=== PATIENT | female | born 1990 ===

== ENCOUNTER 2017-09-12 22:49 | Emergency (ER) | payer MEDICAID ==
[2017-09-12 22:49] VITALS: BMI 48.5
[2017-09-12 22:56] VITALS: BP 128/58; PULSE 84; RESP 16; TEMP 98.2; O2SAT 97
[2017-09-12] MEDS ORDERED: Albuterol-Ipratrop 3 mg / 0.5 (3 ml) UD IH STA (23:19)
--- NOTE | 2017-09-12 23:21 | ED PDOC ---
HPI: CCC, URI, Sore Throat Time Seen by Provider: 09/12/17 23:05 Chief Complaint (Nursing): Cough, Cold, Congestion Chief Complaint (Provider): cough History Per: Patient History/Exam Limitations: no limitations Onset/Duration Of Symptoms: Days (4) Current Symptoms Are (Timing): Still Present Associated Symptoms: Cough Additional History Per: Patient Additional Complaint(s): 27 y/o female presents with nonproductive cough x 4 days. Associated nasal drainage, wheezing. Denies fever, nausea/vomiting, chest pain, shortness of breath, palpitations, abdominal pain, recent travel, sick contacts. Past Medical History Reviewed: Historical Data, Nursing Documentation, Vital Signs Vital Signs: Last Vital Signs Temp 98.2 F 09/12/17 22:55 Pulse 84 09/12/17 22:55 Resp 16 09/12/17 22:55 BP 128/58 L 09/12/17 22:55 Pulse Ox 97 09/12/17 23:21 - Medical History PMH: Asthma, Bronchitis, Fractures (Ribs), Pneumonia, Chronic Pain (Back, lower) Denies: Chronic Kidney Disease - Surgical History Surgical History: No Surg Hx - Family History Family History: States: Unknown Family Hx - Immunization History Hx Tetanus Toxoid Vaccination: No Hx Influenza Vaccination: No - Home Medications Home Medications: Ambulatory Orders Medication Instructions Recorded Albuterol HFA [Ventolin HFA 90 2 puff IH Q6 PRN 10/10/16 mcg/actuation (8 g)] Albuterol HFA [Ventolin HFA 90 1 - 2 puff IH Q4 PRN #1 inh 09/13/17 mcg/actuation (8 g)] Promethazine HCl/Codeine 5 ml PO Q8 PRN #50 ml 09/13/17 [Prometh-Codein 6.25-10 mg/5 ml] - Allergies Allergies/Adverse Reactions: Allergies Allergy/AdvReac Type Severity Reaction Status Date / Time No Known Allergies Allergy Verified 09/18/15 19:48 Review of Systems ROS Statement: Except As Marked, All Systems Reviewed And Found Negative ENT: Positive for: Nose Discharge Respiratory: Positive for: Cough, Wheezing Physical Exam - Reviewed Nursing Documentation Reviewed: Yes Vital Signs Reviewed: Yes - Physical Exam Appears: Positive for: Well, Non-toxic, No Acute Distress Head Exam: Positive for: ATRAUMATIC, NORMAL INSPECTION, NORMOCEPHALIC Skin: Positive for: Normal Color Eye Exam: Positive for: Normal appearance ENT: Positive for: Normal ENT Inspection Cardiovascular/Chest: Positive for: Regular Rate, Rhythm Respiratory: Positive for: Rhonchi, Wheezing Gastrointestinal/Abdominal: Positive for: Normal Exam Back: Positive for: Normal Inspection Extremity: Positive for: Normal ROM Neurologic/Psych: Positive for: Alert, Oriented - ECG O2 Sat by Pulse Oximetry: 97 Pulse Ox Interpretation: Normal - Radiology X-Ray: Viewed By Mn X-Ray Interpretation: No Acute Disease - Progress ED Course And Treament: flu, chest xray, duonebs On re-eval, patient states she is feeing better. Patient educated on findings, discharged with rx Albuterol, Promethazine with codeine Advised fluids, rest. Follow up PMD 2-3 days. Return precautions given. Disposition - Clinical Impression Clinical Impression: Bronchitis - Patient ED Disposition Is Patient to be Admitted: No Counseled Patient/Family Regarding: Studies Performed, Diagnosis, Need For Followup, Rx Given - Disposition Disposition: Routine/Home Disposition Time: 01:20 Condition: IMPROVED Prescriptions: Albuterol HFA [Ventolin HFA 90 mcg/actuation (8 g)] 1 - 2 puff IH Q4 PRN #1 inh PRN Reason: Wheezing Promethazine HCl/Codeine [Prometh-Codein 6.25-10 mg/5 ml] 5 ml PO Q8 PRN #50 ml PRN Reason: Cough Instructions: Acute Bronchitis (ED) Forms: [employer] (Slovenian)
[2017-09-13] MEDS ORDERED: Promethazine/Cod 6.25mg-10mg/5ml Syr UD PO STA (01:19)
[2017-09-13] MEDS ORDERED: Promethazine/Cod 6.25mg-10mg/5ml Syr UD ONE (01:26)
--- NOTE | 2017-09-13 15:25 | RAD ---
HISTORY: cough, congestion COMPARISON: No prior. TECHNIQUE: Chest PA and lateral FINDINGS: LUNGS: No active pulmonary disease. PLEURA: No significant pleural effusion identified. No pneumothorax apparent. CARDIOVASCULAR: Normal. OSSEOUS STRUCTURES: No significant abnormalities. VISUALIZED UPPER ABDOMEN: Normal. OTHER FINDINGS: None. IMPRESSION: No active disease.
== END 2017-09-13 01:31 | disposition home or self-care (01) ==
LOC: H.ER 22:49
DX: J40 Bronchitis, not specified as acute or chronic (principal); G89.29 Other chronic pain; J45.909 Unspecified asthma, uncomplicated

== ENCOUNTER 2018-04-17 19:52 | Emergency (ER) | payer MEDICAID ==
[2018-04-17 19:57] VITALS: BP 99/64; PULSE 82; TEMP 98.3; O2SAT 96; BMI 43.8
[2018-04-17 20:02] VITALS: RESP 18
[2018-04-17] MEDS ORDERED: Naproxen 500 MG TAB PO STA (20:12)
[2018-04-17] MEDS ORDERED: Naproxen 500 MG TAB PO ONE (20:27)
--- NOTE | 2018-04-17 20:43 | ED PDOC ---
Lower Extremity Pain/Injury Time Seen by Provider: 04/17/18 20:04 Chief Complaint (Nursing): Lower Extremity Problem/Injury Chief Complaint (Provider): Right Foot Pain History Per: Patient History/Exam Limitations: no limitations Onset/Duration Of Symptoms: Days (x2 weeks, worsening over last week) Current Symptoms Are (Timing): Still Present Additional Complaint(s): 28 year old female presents to the ED for evaluation of right foot pain onset two weeks ago. Patient reports the pain has been worsening over the last week especially in the morning and when initially taking her first few steps. States she has been taking Aleve for the pain, last dose this morning. She notes she recently began working out and is not sure if this pain is related to that or not. Otherwise, (-) prior foot injury, (-) trauma / falls (-) fever/chills. No other complaints offered at this time. LNMP: currently PMD: Yusra Biggs Past Medical History Reviewed: Historical Data, Nursing Documentation, Vital Signs Vital Signs: Last Vital Signs Temp 98.3 F 04/17/18 19:59 Pulse 82 04/17/18 19:59 Resp 18 04/17/18 19:59 BP 99/64 L 04/17/18 19:59 Pulse Ox 96 04/17/18 19:59 - Medical History PMH: Asthma, Bronchitis, Pneumonia - Surgical History Other surgeries: lipoma removed from scalp - Family History Family History: States: Unknown Family Hx - Social History Current smoker - smoking cessation education provided: No Alcohol: None Drugs: Denies - Home Medications Home Medications: Ambulatory Orders Medication Instructions Recorded Albuterol HFA [Ventolin HFA 90 2 puff IH Q6 PRN 10/10/16 mcg/actuation (8 g)] Albuterol HFA [Ventolin HFA 90 1 - 2 puff IH Q4 PRN #1 inh 09/13/17 mcg/actuation (8 g)] Promethazine HCl/Codeine 5 ml PO Q8 PRN #50 ml 09/13/17 [Prometh-Codein 6.25-10 mg/5 ml] Acetaminophen [Acetaminophen 8 650 mg PO Q8 PRN #21 tablet.er 04/17/18 Hour] Naproxen 500 mg PO BID PRN #20 tablet 04/17/18 - Allergies Allergies/Adverse Reactions: Allergies Allergy/AdvReac Type Severity Reaction Status Date / Time mushroom Allergy RASH Verified 04/17/18 19:59 Review of Systems ROS Statement: Except As Marked, All Systems Reviewed And Found Negative Musculoskeletal: Positive for: Foot Pain (right, worsening) Physical Exam - Reviewed Nursing Documentation Reviewed: Yes Vital Signs Reviewed: Yes - Physical Exam Comments: GENERAL APPEARANCE: Patient is awake, alert, oriented x 3, in no acute distress. Ambulatory in the ED. (+) obese SKIN: Warm, dry; (-) cyanosis. NECK: Supple ENT: Airway patent, (-) stridor. Mucus membranes moist. RIGHT LOWER EXTREMITY: (+) tenderness to 3rd-5th mid to distal metatarsals, (-) swelling, (-) ecchymosis, (-) erythema (-) warmth, (-) skin break. Sensation and capillary refill intact. Remainder of LE including ankle and knee: non tender, full ROM. (-) calf tenderness (-) pedal edema (-) palpable cord. HEART AND CARDIOVASCULAR: (-) irregularity; (-) murmur CHEST AND RESPIRATORY: (-) rales, (-) rhonchi, (-) wheezes; breath sounds equal. Respirations even and nonlabored. NEURO AND PSYCH: Mental status as above. Speech clear (-) facial asymmetry. - ECG O2 Sat by Pulse Oximetry: 96 (RA) Pulse Ox Interpretation: Normal Medical Decision Making Medical Decision Making: Time: 2011 Initial Impression: acute foot pain/sprain Initial Plan: --Right foot XR --Naproxen 500 mg PO --Re-evaluation 2100 Foot XR reviewed: (-) fracture (-) dislocation Patient advised that official radiology read of XR is still pending and will call the patient if there is any discrepancy within 24 hours. On re-evaluation, patient reports improvement of symptoms. On exam, patient remains AAOx3, in no acute distress. On exam, neck is supple, lungs CTA, cardiac RRR,neuro exam shows no focal findings. VSS, stable for discharge. RICE encouraged. Diagnostic results d/w the patient in great detail. Dx of acute foot pain/ sprain d/w the patient. Based on history, exam and diagnostic results plan will be for discharge and outpatient podiatry follow up. Advised to follow up with primary care physician/podiatry in 1-2 days without fail. Advised to take medication as prescribed. Return to the emergency room at any time for any new or worsening symptoms. Patient states she fully agrees with and understands discharge instructions. States that she agrees with the plan and disposition. Verbalized and repeated discharge instructions and plan. I have given the patient opportunity to ask any additional questions. Scribe Attestation: Documented by Lisa Oakley, acting as a scribe for Monica Hanna PA-C. Provider Scribe Attestation: All medical record entries made by the Scribe were at my direction and personally dictated by me. I have reviewed the chart and agree that the record accurately reflects my personal performance of the history, physical exam, medical decision making, and the department course for this patient. I have also personally directed, reviewed, and agree with the discharge instructions and disposition. Disposition - Clinical Impression Clinical Impression: Foot pain, Foot sprain - Patient ED Disposition Is Patient to be Admitted: No Counseled Patient/Family Regarding: Studies Performed, Diagnosis, Need For Followup, Rx Given - Disposition Referrals: Podiatry Clinic [Outside] Dany Posada DPM [Staff Provider] - Disposition: Routine/Home Disposition Time: 21:10 Condition: STABLE Additional Instructions: FOLLOW UP WITH PODIATRY IN 1-2 DAYS FOR FURTHER EVALUATION. RETURN TO ED WITH ANY NEW OR WORSENING SYMPTOMS. TAKE MEDICATION NEEDED FOR SYMPTOMS. REST ICE ELEVATE. Prescriptions: Acetaminophen [Acetaminophen 8 Hour] 650 mg PO Q8 PRN #21 tablet.er PRN Reason: Pain, Moderate (4-7) Naproxen 500 mg PO BID PRN #20 tablet PRN Reason: Pain, Severe (8-10) Instructions: Muscle and Bone Pain (DC), Foot Sprain (DC) Forms: [employer] (Sudanese) Print Language: PERSIAN - POA Present On Arrival: None
--- NOTE | 2018-04-18 06:55 | RAD ---
Date of service: 04/17/2018 PROCEDURE: Right Foot Radiographs. HISTORY: pain to 3-5th metatarsals COMPARISON: None. FINDINGS: BONES: Normal. No fracture. JOINTS: Normal. SOFT TISSUES: Normal. OTHER FINDINGS: None. IMPRESSION: Normal right foot radiographs.
== END 2018-04-17 21:19 | disposition home or self-care (01) ==
LOC: H.ER 19:52
DX: M79.671 Pain in right foot (principal)